=== PATIENT | female | born 1980 | race Two or more races ===

== ENCOUNTER 2020-05-05 06:32 | Day surgery (SDC) | payer OTHER ==
[2020-05-05] MEDS ORDERED: ULTRAM50 MG PO (11:27)
[2020-05-05] MEDS ORDERED: TYLENOL ARTHRI650 MG PO (11:27)
== END 2020-05-05 14:56 | disposition home or self-care (01) ==
LOC: CIR.AMB 06:32
PROVIDERS: ATTEND Surgery
DX: D17.1 Benign lipomatous neoplasm of skin and subcutaneous tissue of trunk (principal); Z20.828 Contact with and (suspected) exposure to other viral communicable diseases